=== PATIENT | male | born 1995 | race African-American/Black ===

== ENCOUNTER 2018-07-24 01:15 | Emergency (ER) | payer SELFPAY ==
[~2018-07-24] VITALS: Ht 188 cm; Wt 102.7 kg
[2018-07-24 01:33] VITALS: BP 144/85
== END 2018-07-24 03:48 | disposition left against medical advice (07) ==
LOC: ER 03:15
DX: R51 Headache (principal); Z53.21 Procedure and treatment not carried out due to patient leaving prior to being seen by health care provider

== ENCOUNTER 2020-10-09 16:27 | Emergency (ER) | payer MEDICAID ==
[~2020-10-09] VITALS: Ht 190.5 cm; Wt 90.0 kg
[2020-10-09] MEDS ORDERED: ACETAMINOPHEN 325MG TABLET PO ONE (17:30)
[2020-10-09] MEDS ORDERED: ONDANSETRON HCL 4MG/2ML INJ IV STA (17:48)
[2020-10-09] MEDS ORDERED: MORPHINE SULFATE 4 MG/ML CPJ (NOT FOR IM USE) IV STA (17:48)
[2020-10-09] MEDS ORDERED: TETANUS, DIPHTHERIA, PERTUSSIS VAC/PF 0.5ML (>7YR OLD) IM ONE (18:00)
[2020-10-09 19:10] LABS: BASOPHILS % 0.4 % (0.0-2.0); EOSINOPHILS % 0.2 % (0.0-5.0); HEMATOCRIT. 43.9 % (42.0-52.0); HEMOGLOBIN. 14.3 g/dL (14.0-18.0); LYMPHOCYTES % 15.3 % (20.0-50.0); MEAN CORPUSCULAR HEMOGLOBIN 26.3 pg (28.0-32.0); MEAN CORPUSCULAR VOLUME 80.9 fL (80.0-94.0); MEAN PLATELET VOLUME 9.7 fl (7.4-10.4); MONOCYTES % 9.8 % (2.0-8.0); NEUTROPHILS % 74.3 % (40.0-76.0); PLATELET 236 x1000/uL (130-400); RED BLOOD CELL COUNT 5.43 mill/uL (4.7-6.1); RED CELL DISTRIBUTION WIDTH 17.5 % (11.6-14.6)
[2020-10-09 19:19] LABS: INR 1.1; PROTHROMBIN TIME 11.4 sec (9.6-11.0)
[2020-10-09 19:22] LABS: CHLORIDE 105 mEq/L (98-107)
[2020-10-09 21:34] LABS: CLARITY URINE CLEAR (CLEAR); COLOR URINE YELLOW (YELLOW); KETONES URINE 1+ (NEGATIVE); LEUKOCYTE ESTERASE URINE NEGATIVE (NEGATIVE); NITRITE URINE NEGATIVE (NEGATIVE); OCCULT BLOOD URINE NEGATIVE (NEGATIVE); PROTEIN URINE TRACE (NEGATIVE); SPECIFIC GRAVITY URINE 1.061 (1.005-1.030)
[2020-10-09 22:20] VITALS: BP 128/71
[2020-10-09] MEDS ORDERED: IOHEXOL 350 MG/ML 200ML INFUS..BTL IV ONE (22:58)
[2020-10-09] MEDS ORDERED: IOHEXOL-300 100 ML BOTTLE ONE (22:58)
== END 2020-10-09 22:21 | disposition home or self-care (01) ==
LOC: ER 16:27
DX: R10.9 Unspecified abdominal pain (principal)
CPT/HCPCS: 36415; 71045; 73590; 74177; 80053; 81003; 83605; 83690; 84484; 85025; 85610; 86850; 86900; 86901; 90471; 90715; 93005; 96374; 96375; 99285; J2270; J2405; Q9967; Z7610